=== PATIENT | female | born 1985 | race Hispanic/Latino ===

== ENCOUNTER 2024-05-14 16:55 | Emergency (ER) | payer OTHER ==
[~2024-05-14] VITALS: Ht 154.9 cm; Wt 63.5 kg
[2024-05-14 17:03] VITALS: PULSE 84; RESP 15; TEMP 98.6; O2SAT 100
[2024-05-14] MEDS ORDERED: FLUCONAZOLE100 MG PO (17:06)
== END 2024-05-14 17:18 | disposition home or self-care (01) ==
LOC: ER 17:04
DX: L74.0 Miliaria rubra (principal)
CPT/HCPCS: 99283